=== PATIENT | male | born 1935 | race Caucasian/White ===

== ENCOUNTER 2019-10-16 08:32 | Day surgery (SDC) | payer MEDICARE, OTHER ==
[~2019-10-16] VITALS: Ht 170.2 cm; Wt 106.6 kg
[~2019-10-16 08:32] MED LIST: ALEVE220 MG PO; AMLODIPINE BESYL5 MG PO; ASPIRIN EC81 MG PO; ATORVASTATIN CA80 MG PO; CLONIDINE HCL0.1 MG PO; COZAAR100 MG PO; DAILY VALUE1 EACH PO; FINASTERIDE5 MG PO; FISH OIL 1,0001 EAC1 PO; FUROSEMIDE40 MG PO; GLUCOSAMINE &1 EAC1 PO; LEVOTHYROXINE50 MCG PO; LIPITOR80 MG PO; LOSARTAN POTAS100 MG PO; MELOXICAM15 MG PO; METOPROLOL SUC100 MG PO; METOPROLOL TAR100 MG PO; MILK OF MA400 MG/5 M PO; MIRALAX17 GM PO; NORCO 5-325 TA1 EACH PO; OMEPRAZOLE20 MG PO; PHILLIPS' LAXA100 MG PO; POTASSIUM CHLO10 ME2 PO; POTASSIUM CHLO10 MEQ PO; TAMSULOSIN HCL0.4 MG PO; TOPROL XL100 MG PO; ULTRAM50 MG PO; VITAMIN D1000 UNIT PO; VITAMIN D2000 UNI1 PO; VITAMIN D5000 UNIT PO; VITAMIN E100 UNI1 PO; VITAMIN E100 UNIT PO; VITAMIN E400 UNIT PO
--- NOTE | 2019-10-16 09:36 | NUR ---
PATIENT TO BATHROOM, ADMINISTERED ENEMA. PATIENT TOLERATED TREATMENT WELL. NO STOOL NOTED, RED DISCHARGE NOTED IN TOILET WATER AND WITH WIPING.
--- NOTE | 2019-10-16 10:37 | NUR ---
10/16/19 1037 Brooklyn Jacobs 1032 PATIENT ARRIVES TO PACU SLEEPING, LIGHT SNORE, AWAKENS BREIFLY WITH VERBAL STIMULI, THEN BACK TO SLEEP. RESP EVEN AND UNLABORED, NC AT 3 LITERS.
--- NOTE | 2019-10-16 11:48 | OR ---
[facility] [address] [place], [place] [address] Signed DATE OF OPERATION: 10/16/2019 SURGEON: Des Young MD PREOPERATIVE DIAGNOSES: 1. History of ulcerative colitis at age 71 (2006). 2. 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 3. History of diverticulosis. 4. Intermittent rectal bleeding. POSTOPERATIVE DIAGNOSES: 1. 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 2. Normal terminal ileum. PROCEDURE: Colonoscopy with cold biopsy of the proximal mid and distal rectum as well as terminal ileum. HISTORY OF PRESENT ILLNESS: Scott is an 84-year-old gentleman, who remains quite functional. He still lives independently and drives himself around and uses a cane to ambulate after his bilateral hip replacements. He was first diagnosed with ulcerative colitis at the age of 71 in 2006. He was working with Dr. Juan Jose Goodson. Later that year he developed toxic megacolon with perforation and required an emergent total abdominal colectomy with right lower quadrant end ileostomy with Dr. Stanley Dudley. He said he has not seen a metal flow coordinator in years. Dr. Goodson has since retired as well as Dr. Dudley. He came to my office with intermittent rectal bleeding. He said the ileostomy seems to be doing quite well. In the office, I explained to Scott that he probably has anywhere from 8-10 cm if not more of his rectal stump remaining. It does place him at increased risk for cancer in that rectal stump knowing that he has ulcerative colitis. We decided we would take him to the endoscopy suite for endoscopic evaluation of the rectal stump and maybe a short distance of his terminal ileum as well. I had given Scott pamphlets on endoscopy. He understands the nature of the test along with its risks including, but not limited to gas bloating, crampy abdominal pain, bleeding, perforation requiring surgery, and missed diagnosis. He also understands the need for IV conscious sedation. He had expressed understanding and wished to proceed. DESCRIPTION OF PROCEDURE: Scott was taken into our endoscopy suite and placed in the left lateral decubitus position. He was given preoperative antibiotics because of his bilateral hip Electronically Signed By: DES YOUNG MD 10/16/19 1148 PATIENT NAME: SCOTT NEWTON OPERATIVE REPORT DATE OF : 39 REPORT #: [id number] PHYSICIAN: DES YOUNG MD PCP: STEVE RIOS MD REPORT IS CONFIDENTIAL AND NOT TO BE RELEASED WITHOUT AUTHORIZATION [facility] [address] [place], [place] [address] Signed replacements. He was given a total of 6 mg of Versed and 125 mcg of fentanyl. A digital rectal exam was performed and as expected, his anal canal was patent, but I could feel stricturing at the tip of my index finger approximate 4 to 6 cm from the anal verge. Of course, there was a little bit of blood on my index finger at the time of the exam. We initially introduced the adult colonoscope and it traveled up through the anal canal and stopped at the distal portion of the rectum where it was atrophied and strictured. We could see beyond the stricture quite a ways and therefore, we decided to change our adult colonoscope to the adult gastroscope. The adult gastroscope had been inserted and once again, it went up to the stricture at around 4-6 cm in its pop. We went and passed our cold biopsy forceps through the scope and it went up another at least 4 cm if not more. Consequently, he has at least 8-10 cm a rectal stump remaining. We took two biopsies from the proximal rectum. We took two additional biopsies right at the distal portion of the rectum/stricture and then took 2 additional biopsies right around the top of the anal canal as well. After this, the area was irrigated and suctioned out until clear. The gastroscope was then removed. After this, Scott was rotated into the supine position. He was maintained on IV sedation with Versed and fentanyl. We carefully removed his ileostomy bag and I could just put my well lubricated index finger into his ileostomy. It contained nice green bile. It is quite healthy. The well-lubricated adult gastroscope was then inserted and very slowly and carefully, we advanced it up to 20 cm. His terminal ileum appears quite healthy. For documentation, we took couple of biopsies of the terminal ileum as we withdrew the scope. After this, the ileostomy bag was reapplied. Scott was then taken into the recovery room in stable condition. He tolerated procedure quite well. RECOMMENDATIONS: I will see Scott back in my office in the next 7-14 days to review his results. Des Young MD ALB/MODL /[id number] cc: MD Steve Ordoñez MD Electronically Signed By: DES YOUNG MD 10/16/19 1148 PATIENT NAME: SCOTT NEWTON OPERATIVE REPORT DATE OF : 39 REPORT #: [id number] PHYSICIAN: DES YOUNG MD PCP: STEVE RIOS MD REPORT IS CONFIDENTIAL AND NOT TO BE RELEASED WITHOUT AUTHORIZATION [address] [address] Signed Copies: DES YOUNG MD, RUSSELL BARR MD ~ Electronically Signed By: DES YOUNG MD 10/16/19 1148 PATIENT NAME: SCOTT NEWTON OPERATIVE REPORT DATE OF : 39 REPORT #: [id number] PHYSICIAN: DES YOUNG MD PCP: STEVE RIOS MD REPORT IS CONFIDENTIAL AND NOT TO BE RELEASED WITHOUT AUTHORIZATION
--- NOTE | 2019-10-17 17:27 | PATH ---
[facility] [address] [place], [place] [address] Signed SPECIMEN(S): A PROXIMAL RECTAL STUMP SPECIMEN(S): B MID RECTUM, STRICTURE SPECIMEN(S): C DISTAL RECTAL STUMP SPECIMEN(S): D TERMINAL ILEUM SPECIMEN SOURCE: A. PROXIMAL RECTAL STUMP B. MID RECTUM, STRICTURE C. DISTAL RECTAL STUMP D. TERMINAL ILEUM CLINICAL HISTORY: Ileostomy, history of colectomy, ulcerative colitis. Postop: Atrophied rectal stump. MICROSCOPIC DESCRIPTION: Histologic sections of all submitted blocks are examined by light microscopy. These findings, together with the gross examination, support the pathologic diagnosis. FINAL PATHOLOGIC DIAGNOSIS: A. Proximal rectal stump, biopsy: - Mild chronic, minimally active proctitis. - Negative for dysplasia or malignancy. B. Mid rectum stricture, biopsy: - Mild chronic, minimally active proctitis. - Negative for dysplasia or malignancy. C. Distal rectal stump, biopsy: - Ulcerated rectal mucosa with mild chronic, active proctitis. - Anorectal mucosa with acute and chronic inflammation. - Negative for dysplasia or malignancy. D. Terminal ileum, biopsy: - Fragments of ileal mucosa with no histopathologic abnormality. - Negative for dysplasia or malignancy. COMMENT: The provided clinical history of ulcerative colitis is noted. Sections of the rectal mucosa in specimens A, B, and C are similar and demonstrate focal minimal cryptitis, lamina propria lymphoplasmacytosis, and crypt architectural distortion. No dysplasia or malignancy is seen within the biopsied tissue. As part of [facility]' Quality Improvement Program, this case was PATIENT NAME: VICENTE NEWTON PATHOLOGY DATE OF : 39 REPORT #: [id number] PHYSICIAN: FISH ARRIETA PCP: STEVE RIOS MD REPORT IS CONFIDENTIAL AND NOT TO BE RELEASED WITHOUT AUTHORIZATION [facility] [address] [place], [place] [address] Signed reviewed by another member of our pathology staff. NAL:NRT:cml:C2NR GROSS DESCRIPTION: Four specimens are received in four containers, labeled "WW." A. The specimen, labeled "WW, proximal rectal stump biopsy," is received in formalin and consists of three cole soft tissue fragments that measure 0.2 cm in greatest dimension. The specimen is entirely submitted in cassette (A1). B. The specimen, labeled "WW, mid rectum stricture biopsy," is received in formalin and consists of two cole soft tissue fragments that measure 0.2 cm in greatest dimension. The specimen is entirely submitted in cassette (B1). C. The specimen, labeled "WW, distal rectal stump biopsy," is received in formalin and consists of two cole soft tissue fragments that measure 0.4 cm in greatest dimension. The specimen is entirely submitted in cassette (C1). D. The specimen, labeled "WW, terminal ileum biopsy," is received in formalin and consists of two cole soft tissue fragments that measure 0.2 cm in greatest dimension. The specimen is entirely submitted in cassette (D1). JS (under the direct supervision of a pathologist) The Gross Description was prepared using a voice recognition system. The report was reviewed for accuracy; however, sound-alike word errors, addition and/or deletions may occur. If there is any question about this report, please contact Client Services. PERFORMING LABORATORY: The technical component was performed by [facility], [address] [place] [id number] ([employer]uum Truck Driver: Cher Hernandez MD; CLIA# [id number]). Professional interpretation was performed by [facility], [address] [place], [place] [address] (CLIA# [id number]). Diagnostician: Soraya Keslser MD Pathologist Electronically Signed 10/17/2019 Copies: PATIENT NAME: VICENTE NEWTON [facility] PATHOLOGY DATE OF : 39 REPORT #: [id number] PHYSICIAN: FISH PATHOLOGY PCP: STEVE RIOS MD REPORT IS CONFIDENTIAL AND NOT TO BE RELEASED WITHOUT AUTHORIZATION [facility] [address] [place] [address] Signed ~ PATIENT NAME: VICENTE NEWTON [facility] PATHOLOGY DATE OF : 39 REPORT #: [id number] PHYSICIAN: [facility] PATH[facility] PCP: STEVE RIOS MD REPORT IS CONFIDENTIAL AND NOT TO BE RELEASED WITHOUT AUTHORIZATION
== END 2019-10-16 11:45 | disposition home or self-care (01) ==
LOC: DS 08:32 → OPS 08:32 → DS 09:45 → OPS 11:45
PROVIDERS: Colon & Rectal Surgery
PROC: 0DBP8ZX Excision of Rectum, Via Natural or Artificial Opening Endoscopic, Diagnostic (ICD-10-PCS; 2019-10-16)
PROC: 0DBB8ZX Excision of Ileum, Via Natural or Artificial Opening Endoscopic, Diagnostic (ICD-10-PCS; principal; 2019-10-16 09:45)
DX: K51.20 Ulcerative (chronic) proctitis without complications (principal); I10 Essential (primary) hypertension; E78.5 Hyperlipidemia, unspecified; E03.9 Hypothyroidism, unspecified; E11.9 Type 2 diabetes mellitus without complications; Z90.49 Acquired absence of other specified parts of digestive tract; Z79.899 Other long term (current) drug therapy; Z88.8 Allergy status to other drugs, medicaments and biological substances
CPT/HCPCS: 85651; 86140; 99153; G0500; J0690; J2250; J3010; J7121